=== PATIENT | female | born 1995 | race Caucasian/White ===

== ENCOUNTER 2023-03-19 10:45 | Outpatient (RCR) | payer BC, SELFPAY | END 2023-07-17 23:59 | disposition home or self-care (01) | PROVIDERS: PCP Physician Assistant Medical; Visit Provider Physician Assistant Medical | DX: M94.0 Chondrocostal junction syndrome [Tietze] (principal); M79.602 Pain in left arm; F41.9 Anxiety disorder, unspecified; R53.1 Weakness; R29.3 Abnormal posture; M25.512 Pain in left shoulder; Z51.89 Encounter for other specified aftercare | CPT/HCPCS: 97110; 97140; 97161 ==

== ENCOUNTER 2023-05-03 19:18 | Emergency (ER) | payer BC, SELFPAY ==
[2023-05-03 19:30] VITALS: BP 150/102; PULSE 107; RESP 18; TEMP 37.2; O2SAT 99; BMI 34.3
--- NOTE | 2023-05-03 21:15 | ED_ITS ---
HPI - General Adult General Date Seen: 05/03/23 Chief complaint: Laceration/Wound Stated complaint: R leg knife laceration, looks shocky Time Seen by Provider: 05/03/23 19:29 History of Present Illness HPI narrative: This is a pleasant 28-year-old female. She is hearing impaired so history is obtained initially through a iPad sign language instructor and subsequently threw an in-person sign language instructor. She presents to the ER today with her mother. She accidentally created a linear laceration on the lateral aspect of her right thigh. Injury occurred just prior to arrival today. She was using a razor blade/box car checker to help her sister slice the transportation escort off of a golf club when she slipped and accidentally cut her leg. She suffered a laceration. With no associated numbness or tingling in her like her foot. She had venous bleeding that was controlled by direct pressure. She is up-to-date with her last tetanus, 2018. She is not diabetic or immunosuppressed. She is very anxious because she has had previous injuries requiring repair and has PTSD from that. Related Data Allergies Allergy/AdvReac Type Severity Reaction Status Date / Time amoxicillin AdvReac Verified 05/03/23 19:31 morphine AdvReac Verified 05/03/23 19:31 Exam Narrative: Exam Narrative: Constitutional: Appears well-developed and well-nourished. Alert. Very anxious and tearful. Conversant through her sign language instructor.. Non toxic. HENT: Head: Atraumatic. Nose: Nose normal. Mouth/Throat: Oral mucosa is clear and moist. no trismus. Pharynx normal. Tonsils symmetric. No tonsillar enlargement, erythema, or exudate. Eyes: Conjunctivae normal. EOM normal. Pupils equal, round, and reactive to light. No scleral icterus. Neck: Normal range of motion. Neck supple. No tracheal deviation present. Cardiovascular: Normal rate, regular rhythm. No gallop. No friction rub. No mu rmur heard. Symmetric radial artery pulses Pulmonary/Chest: Effort normal. No stridor. No respiratory distress. No wheezes. No rales. No rhonchi . No tenderness. Abdominal: Soft. Bowel sounds normal. No distension. No mass. No tenderness. No rebound. No guarding. Musculoskeletal: RUE: Normal range of motion. No tenderness. No deformity LUE: Normal range of motion. No tenderness. No deformity RLE: She has a 4 cm linear laceration affecting the lateral aspect of her right thigh it is about 3[address] from the hip to the knee. It does cause gaping of the wound edge by of more than a cm at the center. There is exposed subcutaneous adipose tissue. No exposed muscle. No visible foreign body. Normal range of motion in her hip and knee. No edema. No tenderness. No deformity. Intact distal neurovascular function. LLE: Normal range of motion. No edema. No tenderness. No deformity Lymph: No cervical adenopathy. Neurological: Alert and oriented to person, place, and time. Normal strength. CN II-VII intact. No sensory deficit. GCS eye subscore is 4. GCS verbal subscore is 5. GCS motor subscore is 6. Normal coordination Skin: Skin is warm and dry. No rash noted. No pallor. Normal capillary refill. Psychiatric: Normal mood. Normal affect. Const: Vital Signs, click to edit/add: Vital Signs - 24 hr 05/03/23 19:30 Temperature 99.0 F Pulse Rate [Left P ulse Oximeter] 107 H Respiratory Rate 18 Blood Pressure [Ri ght Upper Arm] 150/102 H Pulse Oximetry 99 Oxygen Delivery Me thod Room Air Course Vital Signs Vital signs: Initial Vital Signs Temperature 99.0 F 05/03/23 19:30 Temperature Source Temporal Artery Scan 05/03/23 19:30 Pulse Rate 107 H 05/03/23 19:30 Respiratory Rate 18 05/03/23 19:30 Blood Pressure 150/102 H 05/03/23 19:30 Blood Pressure Mean 118 H 05/03/23 19:30 Blood Pressure Position Sitting 05/03/23 19:30 Pulse Oximetry 99 05/03/23 19:30 Oxygen Delivery Method Room Air 05/03/23 19:30 Vital Signs Temperature 99.0 F 05/03/23 19:30 Pulse Rate 107 H 05/03/23 19:30 Respiratory Rate 18 05/03/23 19:30 Blood Pressure 150/102 H 05/03/23 19:30 Pulse Oximetry 99 05/03/23 19:30 Oxygen Delivery Method Room Air 05/03/23 19:30 Temperature 99.0 F 05/03/23 19:30 Pulse Rate 107 H 05/03/23 19:30 Respiratory Rate 18 05/03/23 19:30 Blood Pressure 150/102 H 05/03/23 19:30 Pulse Oximetry 99 05/03/23 19:30 Oxygen Delivery Method Room Air 05/03/23 19:30 Medical Decision Making MDM Narrative Medical decision making narrative: Findings and exam are consistent with an uncomplicated laceration which was repaired as noted above. There is no evidence at this time to suggest any associated fracture or foreign body. There is no evidence to suggest tendon or arterial injury and patient is neurologically in tact. The patient is to follow up for suture removal as instructed in 7-10 days. Indications to seek urgent reevaluation and signs of infection (including but not limited to increasing p ain, redness, swelling, fevers, and drainage) were reviewed. Tetanus is up-to-date. This is a clean and non-contaminated wound in which prophylactic antibiotics are not indicated. An understanding of the discharge instructions and need for follow up were verbally confirmed. Discharge Plan Discharge Clinical Impression: Laceration Patient Disposition: Home, Self-Care Condition: Stable Instructions: Laceration (DC) Additional Instructions: Please keep the wound covered with a dressing and antibiotic ointment. Change the dressing 1 time per day. If the wound is scabbed over, clean the wound gently with warm water and a clean gauze. Avoid strenuous activities such as running, jumping, lifting. If you have any concern for infection-such as redness, swelling, pus, fever, or worsening pain, see your doctor or return to the ER right away. Follow Up/Referrals: Brandi Schofield PA-C [Primary Care Provider] - Stand Alone Forms: [facility] Info Instructions Procedures Laceration Right thigh laceration: Pre procedure diagnosis: Right thigh laceration Side (If applicable): right Size (cm): 4 Description: linear Depth: simple, single layer Local Anesthetic: lidocaine 1% and with epi Amount of anesthesia used (mL): 10 Pre-repair: wound explored, irrigated extensively and deep structures intact Skin layer closed with: nylon Size (cm): 4-0 Number of sutures: 8 Technique: simple, interrupted
== END 2023-05-03 20:55 | disposition home or self-care (01) ==
PROVIDERS: Emergency Provider Emergency Medicine; PCP Physician Assistant Medical
DX: S71.111A Laceration without foreign body, right thigh, initial encounter (principal); W26.0XXA Contact with knife, initial encounter
CPT/HCPCS: 12002; 99283

== ENCOUNTER 2024-05-31 12:43 | Outpatient (CLI) | payer OTHER, SELFPAY ==
--- NOTE | 2024-05-31 13:00 | MR_ITS ---
[address] [address] Phone:?[phone] Fax:?[phone] Referring Physician Information: Les Marie M.D. [id number] [facility] [address] Phone:?[phone] Fax:?[phone] Patient:Thomas Roy D.O.B:?1995 Sex:?Female Phone:?[phone] [facility] MRN:?[id number] Exam Date:?05/31/2024 EXAM: MRI of the LEFT KNEE, without contrast CLINICAL HISTORY: Ongoing left knee pain. History of previous surgery to the left knee. COMPARISONS: Plain radiographs 05/22/2024 and dating back to 07/28/2011. TECHNICAL: MR sequences of the left knee: sagittals: PD, PDFS coronals: PD, STIR axials: PD, T2 FS CONTRAST: None SEDATION: None FINDINGS: Bones: No fracture, bone marrow contusion, or other suspicious bone marrow signal abnormality. Patellofemoral joint: Cartilage: 6 x 3 mm full-thickness chondral defect over the medial femoral trochlea with minimal subjacent subchondral edema-like signal best seen on axial series 4 images 14 and 15. Retinacula: The medial and lateral retinacula are intact. Fat pads: The infrapatellar, quadriceps, and prefemoral fat pads are unremarkable. Knee joint: Effusion: Small left knee joint effusion. Popliteal cyst: None. Intra-articular bodies: None. Posteromedial corner: The semimembranosus and pes anserine tendons are intact. Medial compartment: Medial meniscus: Marked attenuation of most of the medial meniscus is consistent with surgical change status post partial medial meniscectomy. 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 Lateral compartment: Lateral meniscus: Intact. Cartilage: 3 x 3 mm focus of grade II to III chondromalacia over the posterior portion of the lateral tibial plateau. Ligaments: Anterior cruciate ligament: Surgical changes status post anterior cruciate ligament reconstruction with an intact anterior cruciate ligament graft. Posterior cruciate ligament: Intact. Medial collateral ligament: Intact. Posterior oblique ligament: Intact. Fibular collateral ligament: Intact. Posterolateral corner: The distal biceps femoris tendon, iliotibial band, popliteus tendon, popliteus muscle, popliteofibular ligament, and arcuate ligament are intact. Extensor mechanism: Patellar tendon: Marked thickening of the patellar tendon may reflect postoperative change and associated scarring although superimposed tendinopathy is not excluded. Quadriceps tendon: Intact. IMPRESSION: 1. Surgical changes status post anterior cruciate ligament reconstruction with an intact anterior cruciate ligament graft. 2. Marked attenuation of most of the medial meniscus is consistent with surgical change status post partial medial meniscectomy. Correlate with surgical history and any available previous MRI of the left knee. 3. 6 x 3 mm full-thickness chondral defect over the medial femoral trochlea with minimal subjacent subchondral edema-like signal. 4. 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 5. 3 x 3 mm focus of grade II to III chondromalacia over the posterior portion of the lateral tibial plateau. 6. Marked thickening of the patellar tendon may reflect postoperative change and associated scarring although superimposed tendinopathy is not excluded. 7. Small left knee joint effusion. 8. No lateral meniscal pathology or medial collateral ligament injury of the left knee. RCB Electronically signed on 06/01/2024 5:12:00 PM by Felton Cheung M.D.
== END 2024-05-31 12:44 | disposition home or self-care (01) ==
LOC: MRI 12:45
PROVIDERS: PCP Physician Assistant Medical; Visit Provider Orthopaedic Surgery
DX: M25.562 Pain in left knee (principal); M94.262 Chondromalacia, left knee; M25.462 Effusion, left knee; S89.92XA Unspecified injury of left lower leg, initial encounter; Z02.6 Encounter for examination for insurance purposes
CPT/HCPCS: 73721